=== PATIENT | male | born 1960 | race Caucasian/White ===

== ENCOUNTER 2022-12-13 10:06 | Emergency (ER) | payer MEDICAID ==
[~2022-12-13] VITALS: Ht 172.7 cm; Wt 78.0 kg
[~2022-12-13 10:06] MED LIST: ALD50 PO; CHLO25CA10 MT; COR3 PO; FOLI-43 PO; FURO40TA5 MT; MULT-230 MT; POTA-205 MT; THIA100T72 PO
[2022-12-13 10:15] VITALS: O2SAT 99
[2022-12-13 11:31] LABS: BASOPHILS % 0.9 % (0.0-2.0); DIFFERENTIAL COMMENT 0; HEMATOCRIT. 26.2 % (42.0-52.0); HEMOGLOBIN. 8.6 g/dL (14.0-18.0); LYMPHOCYTES % 29.9 % (20.0-50.0); MEAN CORPUSCULAR HEMOGLOBIN 27.8 pg (28.0-32.0); MEAN CORPUSCULAR HGB CONC 32.9 g/dL (31.0-37.0); MEAN CORPUSCULAR VOLUME 84.3 fL (80.0-94.0); MEAN PLATELET VOLUME 7.9 fl (7.4-10.4); MONOCYTES % 11.5 % (2.0-8.0); NEUTROPHILS % 53.7 % (40.0-76.0); PLATELET 146 x1000/uL (130-400); RED CELL DISTRIBUTION WIDTH 19.2 % (11.6-14.6); WHITE BLOOD COUNT 5.4 x1000/uL (4.5-11.0)
[2022-12-13 11:36] LABS: CHLORIDE 108 mEq/L (98-107); INDEX HEMOLYSI 1 (1-3); INDEX ICTERIC 1 (1-4); INDEX LIPEMIC 1 (1-3); SODIUM 134 mEq/L (136-145)
[2022-12-13 11:38] LABS: INR 1.7; PARTIAL THROMBOPLASTIN TIME 36.4 sec (23.4-31.0); PROTHROMBIN TIME 17.8 sec (9.6-11.0)
[2022-12-13 11:43] LABS: ALANINE AMINOTRANSFERASE 16 IU/L (13-61); ALBUMIN 1.8 g/dL (3.4-5.0); ASPARTATE AMINOTRANSFERASE 37 IU/L (15-37); BILIRUBIN TOTAL 1.6 mg/dL (0.1-1.0); CALCIUM 7.2 mg/dL (8.5-10.1); CARBON DIOXIDE 26 mEq/L (21-32); CREATININE 0.7 mg/dL (0.6-1.3); ETHANOL BLOOD < 10 mg/dL (-10); GLUCOSE 111 mg/dL (70-105); UREA NITROGEN BLOOD 3 mg/dL (7-21)
[2022-12-13] MEDS ORDERED: SODIUM BICARBONATE 4% (2.4MEQ) 5ML VIAL IV ONE (13:39)
[2022-12-13] MEDS ORDERED: LIDOCAINE HCL 1% 10 MG/ML 10ML VIAL ONE (13:39)
[2022-12-13] MEDS ORDERED: CEFTRIAXONE 1GM PREMIX 50 ML IV ONE (14:45)
[2022-12-13 17:22] VITALS: BP 125/61; PULSE 85; RESP 16; TEMP 98
== END 2022-12-13 17:42 | disposition home or self-care (01) ==
LOC: ER 10:06
DX: K70.31 Alcoholic cirrhosis of liver with ascites (principal); R14.0 Abdominal distension (gaseous); F10.90 Alcohol use, unspecified, uncomplicated; F19.90 Other psychoactive substance use, unspecified, uncomplicated; Y90.0 Blood alcohol level of less than 20 mg/100 ml
CPT/HCPCS: 80053; 80320; 83690; 85025; 85610; 85730; 86850; 86900; 86901; 36415; 49083; 99285; J3490 ×2; Z7610 ×5; G0480

== ENCOUNTER 2023-01-09 10:00 | Emergency (ER) | payer MEDICAID ==
[~2023-01-09] VITALS: Ht 167.6 cm; Wt 60.0 kg
[2023-01-09 10:06] VITALS: PULSE 82
[2023-01-09 10:13] VITALS: BP 139/82; RESP 16; TEMP 98.8; O2SAT 100
[2023-01-09 10:52] LABS: CLARITY URINE CLEAR (CLEAR); COLOR URINE ORANGE (YELLOW); GLUCOSE URINE NEGATIVE (NEGATIVE); KETONES URINE NEGATIVE (NEGATIVE); LEUKOCYTE ESTERASE URINE TRACE (NEGATIVE); NITRITE URINE POSITIVE (NEGATIVE); OCCULT BLOOD URINE NEGATIVE (NEGATIVE); PROTEIN URINE TRACE (NEGATIVE); SPECIFIC GRAVITY URINE 1.025 (1.005-1.030)
[2023-01-09 10:57] LABS: EOSINOPHILS % 4.8 % (0.0-5.0); HEMATOCRIT. 26.5 % (42.0-52.0); HEMOGLOBIN. 8.6 g/dL (14.0-18.0); LYMPHOCYTES % 29.9 % (20.0-50.0); MEAN CORPUSCULAR HEMOGLOBIN 28.3 pg (28.0-32.0); MEAN CORPUSCULAR HGB CONC 32.4 g/dL (31.0-37.0); MEAN CORPUSCULAR VOLUME 87.4 fL (80.0-94.0); MEAN PLATELET VOLUME 7.7 fl (7.4-10.4); MONOCYTES % 11.9 % (2.0-8.0); NEUTROPHILS % 52.4 % (40.0-76.0); PLATELET 145 x1000/uL (130-400); RED BLOOD CELL COUNT 3.03 mill/uL (4.7-6.1); RED CELL DISTRIBUTION WIDTH 16.2 % (11.6-14.6); WHITE BLOOD COUNT 5.3 x1000/uL (4.5-11.0)
[2023-01-09 11:13] LABS: SQUAMOUS EPITHELIAL CELL URINE 1+ /lpf (RARE/1+)
[2023-01-09 11:15] LABS: BACTERIA URINE TRACE; RBC URINE NONE SEEN /hpf (0-2); WBC URINE 0-2 /hpf (0-2)
[2023-01-09 11:29] LABS: CHLORIDE 107 mEq/L (98-107); INDEX HEMOLYSI 1 (1-3); INDEX ICTERIC 2 (1-4); INDEX LIPEMIC 1 (1-3); POTASSIUM 3.6 mEq/L (3.5-5.1); SODIUM 136 mEq/L (136-145)
[2023-01-09 11:37] LABS: ALANINE AMINOTRANSFERASE 16 IU/L (13-61); ALBUMIN 1.8 g/dL (3.4-5.0); ASPARTATE AMINOTRANSFERASE 37 IU/L (15-37); BILIRUBIN TOTAL 2.3 mg/dL (0.1-1.0); CALCIUM 7.3 mg/dL (8.5-10.1); CARBON DIOXIDE 24 mEq/L (21-32); CREATININE 0.8 mg/dL (0.6-1.3); GLUCOSE 117 mg/dL (70-105); PROTEIN TOTAL 8.1 g/dL (6.0-8.3); UREA NITROGEN BLOOD 6 mg/dL (7-21)
[2023-01-10] MEDS ORDERED: LIDOCAINE HCL 1% 10 MG/ML 10ML VIAL ONE (12:17)
[2023-01-10] MEDS ORDERED: SODIUM BICARBONATE 4% (2.4MEQ) 5ML VIAL IV ONE (12:17)
== END 2023-01-09 14:38 | disposition home or self-care (01) ==
LOC: ER 10:00
DX: D64.9 Anemia, unspecified (principal); R18.8 Other ascites; F10.229 Alcohol dependence with intoxication, unspecified; Y90.0 Blood alcohol level of less than 20 mg/100 ml
CPT/HCPCS: 99283; 80053; 81003; 85025; 36415; J3490 ×2

== ENCOUNTER 2023-01-10 08:33 | Emergency (ER) | payer MEDICAID ==
[~2023-01-10] VITALS: Ht 167.6 cm; Wt 77.1 kg
[2023-01-10 08:57] VITALS: BP 129/81; PULSE 85; RESP 16; TEMP 98.5; O2SAT 100
[2023-01-10 09:23] LABS: CHLORIDE 107 mEq/L (98-107); INDEX HEMOLYSI 1 (1-3); INDEX ICTERIC 2 (1-4); INDEX LIPEMIC 1 (1-3); POTASSIUM 3.9 mEq/L (3.5-5.1); SODIUM 136 mEq/L (136-145)
[2023-01-10 09:24] LABS: INR 1.9; PARTIAL THROMBOPLASTIN TIME 39.7 sec (23.4-31.0); PROTHROMBIN TIME 19.3 sec (9.6-11.0)
[2023-01-10 09:30] LABS: ALANINE AMINOTRANSFERASE 16 IU/L (13-61); ALBUMIN 1.7 g/dL (3.4-5.0); ASPARTATE AMINOTRANSFERASE 36 IU/L (15-37); BASOPHILS % 0.9 % (0.0-2.0); BILIRUBIN TOTAL 2.4 mg/dL (0.1-1.0); CALCIUM 7.5 mg/dL (8.5-10.1); CARBON DIOXIDE 25 mEq/L (21-32); CREATININE 0.7 mg/dL (0.6-1.3); EOSINOPHILS % 5.3 % (0.0-5.0); GLUCOSE 120 mg/dL (70-105); HEMATOCRIT. 26.2 % (42.0-52.0); HEMOGLOBIN. 8.6 g/dL (14.0-18.0); LYMPHOCYTES % 32.2 % (20.0-50.0); MEAN CORPUSCULAR HEMOGLOBIN 28.6 pg (28.0-32.0); MEAN CORPUSCULAR HGB CONC 32.9 g/dL (31.0-37.0); MONOCYTES % 11.6 % (2.0-8.0); PLATELET 134 x1000/uL (130-400); PROTEIN TOTAL 7.8 g/dL (6.0-8.3); RED BLOOD CELL COUNT 3.01 mill/uL (4.7-6.1); RED CELL DISTRIBUTION WIDTH 16.7 % (11.6-14.6); UREA NITROGEN BLOOD 5 mg/dL (7-21); WHITE BLOOD COUNT 4.8 x1000/uL (4.5-11.0)
== END 2023-01-10 15:13 | disposition home or self-care (01) ==
LOC: ER 08:33
DX: R14.0 Abdominal distension (gaseous) (principal); F19.90 Other psychoactive substance use, unspecified, uncomplicated; F10.20 Alcohol dependence, uncomplicated; Y90.9 Presence of alcohol in blood, level not specified; Z79.899 Other long term (current) drug therapy
CPT/HCPCS: 80053; 85025; 85610; 85730; 36415; 49083; 99285; Z7610 ×4

== ENCOUNTER 2023-03-24 12:29 | Emergency (ER) | payer MEDICAID, OTHER ==
[~2023-03-24] VITALS: Ht 162.6 cm; Wt 81.0 kg
[2023-03-24 12:36] VITALS: TEMP 98.2; O2SAT 100
[2023-03-24 13:19] LABS: CLARITY URINE CLEAR (CLEAR); COLOR URINE DARK YELLOW (YELLOW); GLUCOSE URINE NEGATIVE (NEGATIVE); KETONES URINE NEGATIVE (NEGATIVE); LEUKOCYTE ESTERASE URINE TRACE (NEGATIVE); NITRITE URINE POSITIVE (NEGATIVE); OCCULT BLOOD URINE NEGATIVE (NEGATIVE); PH URINE 6.5 (4.5-8.0); PROTEIN URINE TRACE (NEGATIVE); SPECIFIC GRAVITY URINE 1.026 (1.005-1.030)
[2023-03-24 13:21] LABS: HEMATOCRIT. 23.9 % (42.0-52.0); HEMOGLOBIN. 7.9 g/dL (14.0-18.0); MEAN CORPUSCULAR HEMOGLOBIN 28.9 pg (28.0-32.0); MEAN CORPUSCULAR VOLUME 87.5 fL (80.0-94.0); RED BLOOD CELL COUNT 2.73 mill/uL (4.7-6.1); RED CELL DISTRIBUTION WIDTH 18.1 % (11.6-14.6); WHITE BLOOD COUNT 5.3 x1000/uL (4.5-11.0)
[2023-03-24 13:31] LABS: ALANINE AMINOTRANSFERASE 30 IU/L (10-49); ASPARTATE AMINOTRANSFERASE 72 IU/L (<34); BILIRUBIN TOTAL 2.9 mg/dL (0.1-1.0); CALCIUM 7.2 mg/dL (8.7-10.4); CARBON DIOXIDE 27 mEq/L (21-32); CHLORIDE 102 mEq/L (98-107); CREATININE 0.6 mg/dL (0.6-1.3); GLUCOSE 103 mg/dL (70-105); POTASSIUM 3.6 mEq/L (3.5-5.1); PROTEIN TOTAL 8.9 g/dL (6.0-8.3); SODIUM 131 mEq/L (136-145); UREA NITROGEN BLOOD 8 mg/dL (9-23)
[2023-03-24 13:38] LABS: RBC URINE NONE SEEN /hpf (0-2)
[2023-03-24 13:39] LABS: BACTERIA URINE 1+; SQUAMOUS EPITHELIAL CELL URINE FEW /lpf (RARE/1+); YEAST URINE NONE SEEN
[2023-03-24 13:44] LABS: DIFFERENTIAL COMMENT 1
[2023-03-24 14:13] LABS: INR 1.8; PROTHROMBIN TIME 18.2 sec (9.6-11.0)
[2023-03-24 14:29] LABS: PLATELET 153 x1000/uL (130-400)
[2023-03-24 14:35] LABS: PLATELET ESTIMATE NORMAL; ROULEAUX 2+
[2023-03-24 14:36] LABS: ANISOCYTOSIS 1+
[2023-03-24] MEDS ORDERED: LIDOCAINE HCL 1% 20ML VIAL (Pyxis) INJ INFIL STA (15:09)
[2023-03-24 17:37] VITALS: BP 148/77; PULSE 90; RESP 18
== END 2023-03-24 18:31 | disposition home or self-care (01) ==
LOC: ER 12:29
DX: R14.0 Abdominal distension (gaseous) (principal); F10.20 Alcohol dependence, uncomplicated; Z79.899 Other long term (current) drug therapy
CPT/HCPCS: 36415; 80053; 81003; 85025; 99285

== ENCOUNTER 2023-03-29 10:37 | Emergency (ER) | payer MEDICAID ==
[2023-03-29] VITALS (7 sets, daily range): BP systolic 61; BP diastolic 31; PULSE 86–132; RESP 18–34; TEMP 98.1; O2SAT 99
[~2023-03-29] VITALS: Ht 167.6 cm; Wt 91.0 kg
[2023-03-29] MEDS ORDERED: MORPHINE SULFATE 4 MG/ML CPJ (NOT FOR IM USE) IV STA (11:03)
[2023-03-29] MEDS ORDERED: ONDANSETRON HCL 4MG/2ML INJ IV STA (11:03)
[2023-03-29] MEDS ORDERED: PANTOPRAZOLE SODIUM 40 MG/VIAL IV ONE (11:15)
[2023-03-29 11:21] LABS: BASOPHILS % 0.9 % (0.0-2.0); DIFFERENTIAL COMMENT 0; EOSINOPHILS % 0.5 % (0.0-5.0); LYMPHOCYTES % 10.3 % (20.0-50.0); MEAN CORPUSCULAR HGB CONC 29.6 g/dL (31.0-37.0); MEAN PLATELET VOLUME 8.6 fl (7.4-10.4); MONOCYTES % 8.5 % (2.0-8.0); NEUTROPHILS % 79.8 % (40.0-76.0); PLATELET 194 x1000/uL (130-400); RED BLOOD CELL COUNT 1.62 mill/uL (4.7-6.1); RED CELL DISTRIBUTION WIDTH 19.9 % (11.6-14.6); WHITE BLOOD COUNT 15.4 x1000/uL (4.5-11.0)
[2023-03-29 11:32] LABS: INR 2.1; MEAN CORPUSCULAR VOLUME 94.5 fL (80.0-94.0); PROTHROMBIN TIME 21.9 sec (9.6-11.0)
[2023-03-29 11:34] LABS: HEMATOCRIT. 15.3 % (42.0-52.0); HEMOGLOBIN. 4.5 g/dL (14.0-18.0)
[2023-03-29 11:42] LABS: ALANINE AMINOTRANSFERASE 21 IU/L (10-49); ALBUMIN 1.4 g/dL (3.2-4.8); ASPARTATE AMINOTRANSFERASE 48 IU/L (<34); BILIRUBIN TOTAL 1.9 mg/dL (0.1-1.0); CALCIUM 6.9 mg/dL (8.7-10.4); CARBON DIOXIDE 14 mEq/L (21-32); CHLORIDE 104 mEq/L (98-107); CREATININE 0.8 mg/dL (0.6-1.3); GLUCOSE 106 mg/dL (70-105); PROTEIN TOTAL 6.2 g/dL (6.0-8.3); SODIUM 134 mEq/L (136-145); UREA NITROGEN BLOOD 18 mg/dL (9-23)
[2023-03-29] MEDS ORDERED: CEFTRIAXONE 1GM PREMIX 50 ML IV STA (12:07)
[2023-03-29 12:14] LABS: TROPONIN I HIGH SENSITIVITY 55 ng/L (3.0-53)
[2023-03-29 12:15] LABS: ETHANOL BLOOD < 10 mg/dL (<10)
[2023-03-29] MEDS ORDERED: OCTREOTIDE 1,000 MCG in SODIUM CHLORIDE 0.9% 100 ML IV ONE (12:15)
[2023-03-29] MEDS ORDERED: PANTOPRAZOLE 80 MG in SODIUM CHLORIDE 0.9% 100 ML IV SCH ×2 (12:15→15:00)
[2023-03-29 14:15] LABS: TROPONIN I HIGH SENSITIVITY 82 ng/L (3.0-53)
[2023-03-29] MEDS ORDERED: CEFTRIAXONE 1GM PREMIX 50 ML IV NR (14:30)
[2023-03-29] MEDS ORDERED: OCTREOTIDE 1,000 MCG in SODIUM CHLORIDE 0.9% 98 ML IV ONE (14:30)
[2023-03-29] MEDS ORDERED: CALCIUM CHLORIDE 1,000 MG in DEXT 5% WATER 90 ML IV ONE (15:30)
[2023-03-29 16:12] LABS: MEAN CORPUSCULAR HEMOGLOBIN 28.7 pg (28.0-32.0); MEAN CORPUSCULAR HGB CONC 27.5 g/dL (31.0-37.0); MEAN CORPUSCULAR VOLUME 104.1 fL (80.0-94.0); MEAN PLATELET VOLUME 8.3 fl (7.4-10.4); PLATELET 63 x1000/uL (130-400); RED BLOOD CELL COUNT 1.29 mill/uL (4.7-6.1); RED CELL DISTRIBUTION WIDTH 17.8 % (11.6-14.6); WHITE BLOOD COUNT 11.5 x1000/uL (4.5-11.0)
[2023-03-29 16:15] LABS: DIFFERENTIAL COMMENT 1
[2023-03-29 16:21] LABS: ALANINE AMINOTRANSFERASE 66 IU/L (10-49); ASPARTATE AMINOTRANSFERASE 183 IU/L (<34); BILIRUBIN TOTAL 0.8 mg/dL (0.1-1.0); CARBON DIOXIDE 11 mEq/L (21-32); CHLORIDE 121 mEq/L (98-107); POTASSIUM 3.8 mEq/L (3.5-5.1); UREA NITROGEN BLOOD 11 mg/dL (9-23)
[2023-03-29 16:27] LABS: CALCIUM 5.5 mg/dL (8.7-10.4); CREATININE 0.5 mg/dL (0.6-1.3); GLUCOSE 37 mg/dL (70-105); HEMATOCRIT. 13.5 % (42.0-52.0); HEMOGLOBIN. 3.7 g/dL (14.0-18.0); SODIUM 146 mEq/L (136-145)
[2023-03-29 16:28] LABS: ALBUMIN < 1.0 g/dL (3.2-4.8); PROTEIN TOTAL 2.6 g/dL (6.0-8.3)
[2023-03-29] MEDS ORDERED: OCTREOTIDE 1,000 MCG in SODIUM CHLORIDE 0.9% 98 ML IV SCH ×2 (17:15→17:30)
[2023-03-29] MEDS ORDERED: NOREPINEPHRINE 8 MG in DEXT 5% WATER 242 ML IV STA (17:20)
[2023-03-29] MEDS ORDERED: NOREPINEPHRINE 8MG/250ML PMX 250 ML IV ONE ×3 (17:23→19:15)
[2023-03-29 17:46] LABS: BG BASE EXCESS -26.1 mmol/L (-2.0-2.0); BG CARBOXYHEMOGLOBIN 0.3 % (0.5-1.5); BG DEOXYHEMOGLOBIN 15.6 % (0.0-5.0); BG FRACTION INSPIRED OXYGEN 100; BG HCO3 ACT 6.2 mmol/L (22.0-26.0); BG METHEMOGLOBIN 1.3 % (0.0-1.5); BG OXYGEN SATURATION 84.1 % (92.0-98.5); BG OXYHEMOGLOBIN 82.8 % (94.0-97.0); BG PCO2 45.9 mmHg (35.0-45.0); BG PH 6.747 (7.350-7.450); BG PO2 77.9 mmHg (75.0-100.0); BG SAMPLE SITE LEFT FEMORAL; BG TOTAL HEMOGLOBIN 4.5 g/dL (12.0-18.0); BG TOTAL RESPIRATORY RATE 22 b/min; BG VENT MODE VENT - AC
[2023-03-29] MEDS ORDERED: EPINEPHRINE 10 MG in SODIUM CHLORIDE 0.9% 240 ML IV PRN ×4 (18:45)
[2023-03-29] MEDS ORDERED: SODIUM BICARBONATE 8.4% 1 MEQ/ML 50ML SYR IV NR (18:45)
[2023-03-29] MEDS ORDERED: SODIUM BICARBONATE 150 MEQ in SODIUM CHLORIDE 0.45% 1,000 ML IV SCH (19:30)
[2023-03-29] MEDS ORDERED: ONDANSETRON HCL 4MG/2ML INJ IV PRN (20:00)
[2023-03-29] MEDS ORDERED: DEXT 5%/0.9% NACL 1,000 ML IV SCH (20:00)
[2023-03-29] MEDS ORDERED: NOREPINEPHRINE 32 MG in DEXT 5% WATER 218 ML IV PRN ×4 (20:45)
[2023-03-29] MEDS ORDERED: VASOPRESSIN 20 UNIT in SODIUM CHLORIDE 0.9% 99 ML IV PRN ×2 (21:00→21:15)
[2023-03-29] MEDS ORDERED: PANTOPRAZOLE SODIUM 40 MG/VIAL IV SCH (21:00)
[2023-03-29] MEDS ORDERED: PHENYLEPHRINE 100 MG in DEXT 5% WATER 240 ML IV PRN ×2 (21:00→21:15)
[2023-03-29 21:16] LABS: ANISOCYTOSIS 1+; PLATELET ESTIMATE DECREASED
[2023-03-29] MEDS ORDERED: HYDROCORTISONE SOD SUCCINATE 100 MG/2 ML VIAL IV SCH (22:00)
[2023-03-30] MEDS ORDERED: CEFTRIAXONE 1,000 MG in DEXTROSE 5% WATER 50 ML IV SCH (09:00)
[2023-03-30] MEDS ORDERED: CEFTRIAXONE 1GM PREMIX 50 ML IV SCH (14:00)
== END 2023-03-29 21:07 ==
LOC: ER 10:48 → EDBEDREQ 12:13 → EDBEDREQSVC 12:48 → MICUSO 13:23 → UNDOADMIN 13:23 → EDBEDREQTM 13:27 → EDBEDREQ 13:27 → ER 21:07
DX: I46.9 Cardiac arrest, cause unspecified (principal); K92.2 Gastrointestinal hemorrhage, unspecified; F19.90 Other psychoactive substance use, unspecified, uncomplicated; F10.10 Alcohol abuse, uncomplicated; Y90.9 Presence of alcohol in blood, level not specified
CPT/HCPCS: 80053; 80320; 82962; 83605; 85025; 85610; 86850; 86900; 86901; 86920; 87040; 87186; 84484; 87077; 36415; 71045; 82805; 82375; 31500 ×2; 93005; 96368; 92950; 96365; 96366; 96375; 99291; 86927; 36600; J3490 ×3; J0696; J2354; J1720; J2405; C9113; J2270; J7060 ×2; J7050; Z7610 ×11; 94002; P9016; P9017; G0480